=== PATIENT | female | born 1965 | race Caucasian/White ===

== ENCOUNTER → 2016-07-16 | Outpatient (CLI) | payer OTHER ==
--- NOTE | 2016-07-16 11:11 | MA ---
Screening Digital Mammogram Clinical Indications: Routine screening. Both grandmothers with breast cancer in 60s. Technique: Standard cephalocaudal and mediolateral oblique projections were obtained. This examinat ion was processed by the [employer] computer aided detection system. Comparison: June 2015, June 2014, May 2013 and May 2012. Breast density: D; The breast tissue is extremely dense. This may lower the sensitivity of mammograph y. Findings: CAD was reviewed. No suspicious findings are identified. Impression: Negative mammogram. BI-RADS 1. Recommendation: Routine screening is recommended in one year, as long as physical examination is bertha ign in this patient with extremely dense breast parenchyma. Considering the patient's dense breast pa renchyma and family history, she might consider using whole breast screening ultrasound as a compleme nt to annual screening mammography. [facility] will send a result letter to the patient. Negative mammography should not preclude additional workup of a clinically suspicious finding. The patient's information is entered into a reminder system with a target due date for her next mammo gram.
== END ==
LOC: FIMAGING 10:25
DX: Z12.31 Encounter for screening mammogram for malignant neoplasm of breast (principal); Z80.3 Family history of malignant neoplasm of breast
CPT/HCPCS: G0202

== ENCOUNTER → 2016-07-29 | Outpatient (CLI) | payer OTHER | LOC: CIMAGING 10:48 | PROVIDERS: ATTEND Obstetrics & Gynecology | DX: N95.0 Postmenopausal bleeding (principal); N85.9 Noninflammatory disorder of uterus, unspecified; D25.9 Leiomyoma of uterus, unspecified | CPT/HCPCS: 76856-PO ==

== ENCOUNTER → 2017-07-22 | Outpatient (CLI) | payer OTHER | LOC: FIMAGING 12:30 | PROVIDERS: ATTEND Obstetrics & Gynecology | DX: Z12.31 Encounter for screening mammogram for malignant neoplasm of breast (principal) ==

== ENCOUNTER → 2018-08-11 | Outpatient (CLI) | payer OTHER | LOC: EMCIMAGING 13:40 | PROVIDERS: ATTEND Obstetrics & Gynecology | DX: Z12.31 Encounter for screening mammogram for malignant neoplasm of breast (principal) | CPT/HCPCS: 77067-PN ==